=== PATIENT | male | born 1995 | race African-American/Black ===

== ENCOUNTER 2024-02-26 11:02 | Emergency (ER) | payer MEDICAID ==
[~2024-02-26] VITALS: Ht 185.4 cm; Wt 86.1 kg
[2024-02-26 11:15] VITALS: BP 113/93; O2SAT 98
[2024-02-26 12:00] VITALS: PULSE 78; RESP 18; TEMP 36.72516; O2SAT 98
[2024-02-26] MEDS: DIPHENHYDRAMINE 25MG CAPSULE PO ONE (12:22)
== END 2024-02-26 12:29 | disposition home or self-care (01) ==
LOC: ER 11:02
DX: T78.40XA Allergy, unspecified, initial encounter (principal); Z88.0 Allergy status to penicillin; Z98.890 Other specified postprocedural states; X58.XXXA Exposure to other specified factors, initial encounter
CPT/HCPCS: 99282; Q0163